=== PATIENT | male | born 1985 | race Caucasian/White ===

== ENCOUNTER 2018-06-07 13:47 | Inpatient (IN) | payer MEDICAID, OTHER ==
[~2018-06-07] VITALS: Ht 175.3 cm; Wt 148.0 kg
[~2018-06-07 13:47] MED LIST: CLON.5 PO; DOCU250C91 PO; FLUD25I IM; HYDR25TA PO; METO50 PO; OMEP20 PO; QUET200T PO
[2018-06-07 15:22] LABS: BASOPHILS % (AUTO) 0.9 % (0.0-2.0); EOSINOPHILS % (AUTO) 0.1 % (1.0-6.0); HEMATOCRIT 41.8 % (41-53); LYMPHOCYTES # (AUTO) 2.6 K/uL (1.0-4.8); MEAN CORPUSCULAR HEMOGLOBIN 29.9 pg (26.0-34.0); MEAN CORPUSCULAR HGB CONC 33.5 G/dL (31.0-37.0); MEAN CORPUSCULAR VOLUME 89 fL (80-100); MONOCYTES # (AUTO) 0.8 K/uL (0.1-1.0); MONOCYTES % (AUTO) 7.2 % (2.0-9.0); NEUTROPHILS # (AUTO) 8.2 K/uL (1.8-7.7); NEUTROPHILS % (AUTO) 69.8 % (40.0-70.0); PLATELET COUNT (AUTO) 283 K/uL (150-450); RED BLOOD CELL COUNT(AUTO) 4.69 MIL/uL (4.50-5.90); RED CELL DISTRIBUTION WIDTH 13.4 % (11.5-14.5)
[2018-06-07 15:33] LABS: ANION GAP 10 mmol/L (8-16); CALCIUM, TOTAL 9.2 mg/dL (8.8-10.5); CARBON DIOXIDE 27 mmol/L (22-29); CHLORIDE 99 mmol/L (98-107); CREATININE 0.88 mg/dL (0.60-1.30); GLOMERULAR FILTR. RATE CALC > 60 mL/min (>60); GLUCOSE,RANDOM 177 mg/dL (70-110); POTASSIUM 3.4 mmol/L (3.5-5.1); SODIUM SERUM 136 mmol/L (136-145); UREA NITROGEN, BLOOD 9 mg/dL (7-18)
[2018-06-07 15:39] LABS: ALANINE AMINOTRANSFERASE 135 U/L (12-78); ALBUMIN 3.8 g/dL (3.4-5.0); ALKALINE PHOSPHATASE 75 U/L (46-116); ASPARTATE AMINOTRANSFERASE 105 U/L (15-37); BILIRUBIN,TOTAL 1.8 mg/dL (0.1-1.0); TOTAL PROTEIN, SERUM 8.8 g/dL (6.4-8.2)
[2018-06-07] MEDS ORDERED: PROPRANOLOL HCL 40 MG TABLET PO ONE (16:30)
[2018-06-07] MEDS ORDERED: POTASSIUM CHLORIDE 20 MEQ ER TABLET PO ONE (16:30)
[2018-06-07] MEDS ORDERED: ZOLPIDEM TARTRATE 10 MG TABLET PO PRN (16:45)
[2018-06-07 18:24] LABS: AMPHET/METH SCREEN,URINE NEGATIVE (NEGATIVE); BARBITURATE SCREEN, URINE NEGATIVE (NEGATIVE); BENZODIAZEPINES SCREEN,URINE NEGATIVE (NEGATIVE); CANNABINOID SCREEN,URINE NEGATIVE (NEGATIVE); COCAINE SCREEN,URINE NEGATIVE (NEGATIVE); METHADONE SCREEN, URINE NEGATIVE (NEGATIVE); OPIATE SCREEN,URINE NEGATIVE (NEGATIVE)
[2018-06-07 18:26] LABS: APPEARANCE,URINE CLEAR (CLEAR); BILIRUBIN,URINE NEGATIVE (NEGATIVE); GLUCOSE, URINE (UA) NEGATIVE (NEGATIVE); KETONES,URINE TRACE mg/dL (NEGATIVE); LEUKOCYTE ESTERASE ,URINE NEGATIVE (NEGATIVE); NITRATE,URINE NEGATIVE (NEGATIVE); OCCULT BLOOD,URINE TRACE (NEGATIVE); PROTEIN,URINE SEE CONFIRM (NEGATIVE)
[2018-06-07 18:29] LABS: PHENCYCLIDINE SCREEN,URINE NEGATIVE (NEGATIVE)
[2018-06-07 18:48] LABS: SULFOSALICYLIC ACID,URINE 3+ (Negative)
[2018-06-07 18:49] LABS: BACTERIA,URINE None Seen /HPF (None Seen); RBC,URINE 0-2 /HPF (0-2); SQUAMOUS EPITHELIAL CELL,UR Rare /LPF (None Seen); WBC,URINE 0-2 /HPF (0-5)
[2018-06-07] MEDS ORDERED: DiphenhydrAMINE HCL 50 MG/ML VIAL IM ONE (21:15)
[2018-06-07] MEDS ORDERED: LORazepam 2 MG/ML VIAL IM ONE (21:15)
[2018-06-07] MEDS ORDERED: HALOPERIDOL LACTATE 5 MG/ML VIAL IM ONE (21:15)
[2018-06-07] MEDS ORDERED: CloNIDine HCL 0.1 MG TABLET PO PRN (22:30)
[2018-06-08 00:46] VITALS: BP 137/78
[2018-06-08 08:41] LABS: ALANINE AMINOTRANSFERASE 136 U/L (12-78); ALBUMIN 3.7 g/dL (3.4-5.0); ALKALINE PHOSPHATASE 76 U/L (46-116); ANION GAP 11 mmol/L (8-16); ASPARTATE AMINOTRANSFERASE 99 U/L (15-37); BILIRUBIN,TOTAL 1.7 mg/dL (0.1-1.0); CARBON DIOXIDE 28 mmol/L (22-29); CHLORIDE 101 mmol/L (98-107); CHOL/HDL RATIO 4.1 (4.2-7.3); CHOLESTEROL 186 mg/dL (131-200); CREATININE 0.92 mg/dL (0.60-1.30); FREE T4 (FREE THYROXINE) 1.15 ng/dL (0.76-1.46); GLOMERULAR FILTR. RATE CALC > 60 mL/min (>60); GLUCOSE,RANDOM 126 mg/dL (70-110); HDL CHOLESTEROL 45 mg/dL (40-60); LDL CHOL (CALC.) 122 mg/dL (0-130); POTASSIUM 3.9 mmol/L (3.5-5.1); SODIUM SERUM 140 mmol/L (136-145); THYROID STIMULATING HORMONE 2.38 uIU/mL (0.36-3.74); TOTAL PROTEIN, SERUM 8.1 g/dL (6.4-8.2); TRIGLYCERIDES 94 mg/dL (15-150); UREA NITROGEN, BLOOD 17 mg/dL (7-18)
[2018-06-08] MEDS: HYDROCHLOROTHIAZIDE 25 MG TABLET PO SCH (08:46)
[2018-06-08] MEDS: METOPROLOL TARTRATE 50 MG TABLET PO SCH (08:46)
[2018-06-08] MEDS: OMEPRAZOLE 20 MG CAPSULE PO SCH (08:47)
[2018-06-08 09:36] VITALS: BP 137/77
[2018-06-08] MEDS ORDERED: HALOPERIDOL LACTATE 5 MG/ML VIAL ONE (14:31)
[2018-06-08] MEDS ORDERED: LORazepam 2 MG/ML VIAL ONE (14:31)
[2018-06-08] MEDS ORDERED: DiphenhydrAMINE HCL 50 MG/ML VIAL ONE (14:31)
[2018-06-08] MEDS ORDERED: HALOPERIDOL LACTATE 5 MG/ML VIAL IM ONE (15:55)
[2018-06-08] MEDS ORDERED: DiphenhydrAMINE HCL 50 MG/ML VIAL IM ONE (15:55)
[2018-06-08] MEDS ORDERED: LORazepam 2 MG/ML VIAL IM ONE (15:55)
[2018-06-08 16:09] VITALS: BP 138/83
[2018-06-08] MEDS: ZIPRASIDONE HCL 20 MG CAPSULE PO SCH (17:11)
[2018-06-08] MEDS: DOCUSATE SODIUM 250 MG CAPSULE PO SCH (20:41)
[2018-06-09 04:05] VITALS: BP 152/99
[2018-06-09] MEDS: ZIPRASIDONE HCL 20 MG CAPSULE PO SCH ×2 (06:21→17:27)
[2018-06-09] MEDS: METOPROLOL TARTRATE 50 MG TABLET PO SCH (08:48)
[2018-06-09] MEDS: HYDROCHLOROTHIAZIDE 25 MG TABLET PO SCH (08:49)
[2018-06-09] MEDS: OMEPRAZOLE 20 MG CAPSULE PO SCH (08:49)
[2018-06-09 09:15] VITALS: BP 140/95
[2018-06-09 16:38] VITALS: BP 144/98
[2018-06-09] MEDS: DOCUSATE SODIUM 250 MG CAPSULE PO SCH (20:27)
[2018-06-10 06:40] LABS: GLUCOMETER DEV NAME(LOC) 3E.C; GLUCOSE,POINT OF CARE 181 MG/DL (70-110)
[2018-06-10] MEDS: ZIPRASIDONE HCL 20 MG CAPSULE PO SCH ×2 (07:04→16:38)
[2018-06-10 08:05] VITALS: BP 142/103
[2018-06-10] MEDS: OMEPRAZOLE 20 MG CAPSULE PO SCH (09:09)
[2018-06-10] MEDS: METOPROLOL TARTRATE 50 MG TABLET PO SCH (09:09)
[2018-06-10] MEDS: HYDROCHLOROTHIAZIDE 25 MG TABLET PO SCH (09:09)
[2018-06-10] MEDS: DOCUSATE SODIUM 250 MG CAPSULE PO SCH (20:28)
[2018-06-10 21:01] VITALS: BP 135/98
[2018-06-11] MEDS: HALOPERIDOL 5 MG TABLET PO PRN ×2 (04:14→12:28)
[2018-06-11] MEDS: LORazepam 2 MG TABLET PO PRN ×2 (04:15→12:28)
[2018-06-11 04:22] VITALS: BP 159/88
[2018-06-11 05:59] LABS: BASOPHILS % (AUTO) 0.7 % (0.0-2.0); EOSINOPHILS % (AUTO) 0.9 % (1.0-6.0); HEMATOCRIT 40.3 % (41-53); HEMOGLOBIN 13.8 g/dL (13.5-17.5); LYMPHOCYTES # (AUTO) 2.7 K/uL (1.0-4.8); LYMPHOCYTES % (AUTO) 27.8 % (22.0-44.0); MEAN CORPUSCULAR HEMOGLOBIN 30.4 pg (26.0-34.0); MEAN CORPUSCULAR HGB CONC 34.3 G/dL (31.0-37.0); MEAN CORPUSCULAR VOLUME 89 fL (80-100); MONOCYTES # (AUTO) 0.8 K/uL (0.1-1.0); NEUTROPHILS # (AUTO) 6.1 K/uL (1.8-7.7); NEUTROPHILS % (AUTO) 62.6 % (40.0-70.0); PLATELET COUNT (AUTO) 241 K/uL (150-450); RED BLOOD CELL COUNT(AUTO) 4.53 MIL/uL (4.50-5.90); RED CELL DISTRIBUTION WIDTH 13.1 % (11.5-14.5)
[2018-06-11 06:16] LABS: ALANINE AMINOTRANSFERASE 125 U/L (12-78); ALBUMIN 3.5 g/dL (3.4-5.0); ALKALINE PHOSPHATASE 79 U/L (46-116); ANION GAP 10 mmol/L (8-16); ASPARTATE AMINOTRANSFERASE 72 U/L (15-37); BILIRUBIN,TOTAL 0.7 mg/dL (0.1-1.0); CALCIUM, TOTAL 9.4 mg/dL (8.8-10.5); CARBON DIOXIDE 29 mmol/L (22-29); CHLORIDE 100 mmol/L (98-107); CREATININE 0.79 mg/dL (0.60-1.30); GLOMERULAR FILTR. RATE CALC > 60 mL/min (>60); GLUCOSE,RANDOM 151 mg/dL (70-110); POTASSIUM 3.8 mmol/L (3.5-5.1); SODIUM SERUM 139 mmol/L (136-145); TOTAL PROTEIN, SERUM 8.2 g/dL (6.4-8.2); UREA NITROGEN, BLOOD 14 mg/dL (7-18)
[2018-06-11] MEDS: ZIPRASIDONE HCL 20 MG CAPSULE PO SCH (06:54)
[2018-06-11] MEDS: METOPROLOL TARTRATE 50 MG TABLET PO SCH (08:54)
[2018-06-11] MEDS: OMEPRAZOLE 20 MG CAPSULE PO SCH (08:55)
[2018-06-11] MEDS: HYDROCHLOROTHIAZIDE 25 MG TABLET PO SCH (08:55)
[2018-06-11 09:04] VITALS: BP 146/86
[2018-06-11] MEDS ORDERED: ZIPR20CA2 PO (13:42)
== END 2018-06-11 15:10 | disposition home or self-care (01) | DRG 750 ==
LOC: EMS 13:49 → B3A 18:54 → 3EC 06-09 14:54
PROVIDERS: ADMIT Psychiatry & Neurology Psychiatry; ATTEND Psychiatry & Neurology Psychiatry
DX: F25.0 Schizoaffective disorder, bipolar type (principal); R45.851 Suicidal ideations; Z68.42 Body mass index [BMI] 45.0-49.9, adult; F41.9 Anxiety disorder, unspecified; R45.87 Impulsiveness; K21.9 Gastro-esophageal reflux disease without esophagitis; I10 Essential (primary) hypertension; E87.6 Hypokalemia; E03.9 Hypothyroidism, unspecified; D72.829 Elevated white blood cell count, unspecified; K59.00 Constipation, unspecified; G47.33 Obstructive sleep apnea (adult) (pediatric); E66.9 Obesity, unspecified; Z91.14 Patient's other noncompliance with medication regimen; Z91.19 Patient's noncompliance with other medical treatment and regimen; Z82.49 Family history of ischemic heart disease and other diseases of the circulatory system
CPT/HCPCS: 80074; 84436; 84439; 84443; 90686; 94660; G0480; J1200; J1630; J2060

== ENCOUNTER 2018-07-31 22:12 | Emergency (ER) | payer MEDICAID ==
[~2018-07-31 22:12] MED LIST changes: -CLON.5 PO; -FLUD25I IM; -QUET200T PO; +ZIPR20CA2 PO
== END 2018-07-31 23:13 | disposition left against medical advice (07) ==
LOC: EMS 22:12
DX: Z00.00 Encounter for general adult medical examination without abnormal findings (principal); Z53.21 Procedure and treatment not carried out due to patient leaving prior to being seen by health care provider

== ENCOUNTER 2018-08-01 05:36 | Emergency (ER) | payer MEDICAID, OTHER ==
[~2018-08-01] VITALS: Ht 180.3 cm; Wt 145.4 kg
[2018-08-01 07:25] VITALS: BP 161/108
== END 2018-08-01 07:55 | disposition home or self-care (01) ==
LOC: EMS 05:36
DX: F31.9 Bipolar disorder, unspecified (principal); F41.9 Anxiety disorder, unspecified; I10 Essential (primary) hypertension; K21.9 Gastro-esophageal reflux disease without esophagitis; Z76.0 Encounter for issue of repeat prescription

== ENCOUNTER 2018-08-03 13:26 | Inpatient (IN) | payer MEDICAID, OTHER ==
[~2018-08-03] VITALS: Ht 172.7 cm; Wt 148.3 kg
[~2018-08-03 13:26] MED LIST changes: -DOCU250C91 PO; -HYDR25TA PO; -METO50 PO; -OMEP20 PO
[2018-08-03] MEDS ORDERED: GuaiFENesin/D-METHORPHAN [SUGAR-FREE] 200-20MG/10 ML SYRUP UDCUP PO PRN (15:00)
[2018-08-03] MEDS ORDERED: TUBERCULIN, PURIFIED PROTEIN DERIVATIVE 5 TU/0.1 ML SYRINGE ID ONE (15:00)
[2018-08-03] MEDS ORDERED: HydrOXYzine PAMOATE 50 MG CAPSULE PO PRN (15:00)
[2018-08-03] MEDS ORDERED: MAG HYDROX/AL HYDROX/SIMETH ES 30 ML SUSPENSION UDCUP PO PRN (15:00)
[2018-08-03] MEDS ORDERED: PROMETHAZINE HCL 25 MG TABLET PO PRN (15:00)
[2018-08-03 15:41] LABS: AMPHET/METH SCREEN,URINE NEGATIVE (NEGATIVE); BARBITURATE SCREEN, URINE NEGATIVE (NEGATIVE); BENZODIAZEPINES SCREEN,URINE NEGATIVE (NEGATIVE); CANNABINOID SCREEN,URINE NEGATIVE (NEGATIVE); COCAINE SCREEN,URINE NEGATIVE (NEGATIVE); METHADONE SCREEN, URINE NEGATIVE (NEGATIVE); OPIATE SCREEN,URINE NEGATIVE (NEGATIVE)
[2018-08-03 15:42] LABS: LIPASE 106 U/L (73-393)
[2018-08-03 15:43] LABS: PHENCYCLIDINE SCREEN,URINE NEGATIVE (NEGATIVE)
[2018-08-03 16:26] LABS: BASOPHILS % (AUTO) 0.5 % (0.0-2.0); EOSINOPHILS % (AUTO) 0.3 % (1.0-6.0); HEMATOCRIT 39.8 % (41-53); HEMOGLOBIN 13.8 g/dL (13.5-17.5); LYMPHOCYTES # (AUTO) 2.8 K/uL (1.0-4.8); MEAN CORPUSCULAR HEMOGLOBIN 30.1 pg (26.0-34.0); MEAN CORPUSCULAR HGB CONC 34.6 G/dL (31.0-37.0); MEAN CORPUSCULAR VOLUME 87 fL (80-100); MONOCYTES # (AUTO) 0.8 K/uL (0.1-1.0); MONOCYTES % (AUTO) 5.9 % (2.0-9.0); NEUTROPHILS # (AUTO) 10.4 K/uL (1.8-7.7); NEUTROPHILS % (AUTO) 73.3 % (40.0-70.0); PLATELET COUNT (AUTO) 291 K/uL (150-450); RED BLOOD CELL COUNT(AUTO) 4.58 MIL/uL (4.50-5.90); RED CELL DISTRIBUTION WIDTH 12.9 % (11.5-14.5)
[2018-08-03 16:29] LABS: ANION GAP 11 mmol/L (8-16); CALCIUM, TOTAL 9.4 mg/dL (8.8-10.5); CARBON DIOXIDE 24 mmol/L (22-29); CHLORIDE 96 mmol/L (98-107); CREATININE 1.04 mg/dL (0.60-1.30); GLOMERULAR FILTR. RATE CALC > 60 mL/min (>60); GLUCOSE,RANDOM 233 mg/dL (70-110); POTASSIUM 3.6 mmol/L (3.5-5.1); SODIUM SERUM 131 mmol/L (136-145); UREA NITROGEN, BLOOD 13 mg/dL (7-18)
[2018-08-03 16:35] LABS: ALANINE AMINOTRANSFERASE 50 U/L (12-78); ALBUMIN 3.4 g/dL (3.4-5.0); ALKALINE PHOSPHATASE 85 U/L (46-116); ASPARTATE AMINOTRANSFERASE 52 U/L (15-37); TOTAL PROTEIN, SERUM 8.6 g/dL (6.4-8.2)
[2018-08-03] MEDS: METOPROLOL TARTRATE 50 MG TABLET PO ONE ×2 (16:57→17:02)
[2018-08-03] MEDS: THIAMINE HCL 100 MG TABLET PO SCH (21:00)
[2018-08-03] MEDS: QUEtiapine FUMARATE 200 MG TABLET PO SCH (21:00)
[2018-08-03] MEDS: LORazepam 2 MG TABLET PO PRN (21:39)
[2018-08-03] MEDS ORDERED: LORazepam 2 MG/ML VIAL ONE (22:31)
[2018-08-03] MEDS ORDERED: DiphenhydrAMINE HCL 50 MG/ML VIAL ONE (22:31)
[2018-08-03] MEDS ORDERED: DiphenhydrAMINE HCL 50 MG/ML VIAL IM ONE (22:45)
[2018-08-03] MEDS ORDERED: LORazepam 2 MG/ML VIAL IM ONE (22:45)
[2018-08-04] MEDS ORDERED: PNEUMOCOCCAL VACCINE POLYVALENT 0.5 ML VIAL [PPSV23] IM ONE (01:00)
[2018-08-04] MEDS ORDERED: LORazepam 2 MG/ML VIAL IM ONE ×2 (08:30→21:15)
[2018-08-04] MEDS ORDERED: DiphenhydrAMINE HCL 50 MG/ML VIAL IM ONE ×2 (08:30→21:15)
[2018-08-04] MEDS: FOLIC ACID 1 MG TABLET PO SCH (09:00)
[2018-08-04] MEDS: MULTIVITAMINS WITH MINERALS, THERAPEUTIC TABLET PO SCH (09:00)
[2018-08-04] MEDS: THIAMINE HCL 100 MG TABLET PO SCH ×2 (09:00→16:17)
[2018-08-04] MEDS: METOPROLOL TARTRATE 50 MG TABLET PO SCH (16:17)
[2018-08-04] MEDS: QUEtiapine FUMARATE 200 MG TABLET PO SCH (20:31)
[2018-08-04] MEDS ORDERED: LORazepam 2 MG/ML VIAL ONE (21:10)
[2018-08-04] MEDS ORDERED: DiphenhydrAMINE HCL 50 MG/ML VIAL ONE (21:11)
[2018-08-05] MEDS: DIVALPROEX SODIUM 500 MG ER TABLET PO SCH (08:29)
[2018-08-05] MEDS: MULTIVITAMINS WITH MINERALS, THERAPEUTIC TABLET PO SCH (08:30)
[2018-08-05] MEDS: OMEPRAZOLE 20 MG CAPSULE PO SCH (08:30)
[2018-08-05] MEDS: THIAMINE HCL 100 MG TABLET PO SCH ×2 (08:30→16:35)
[2018-08-05] MEDS: METOPROLOL TARTRATE 50 MG TABLET PO SCH ×2 (08:30→16:35)
[2018-08-05] MEDS: FOLIC ACID 1 MG TABLET PO SCH (08:30)
[2018-08-05] MEDS: QUEtiapine FUMARATE 100 MG TABLET PO PRN (08:33)
[2018-08-05] MEDS: LORazepam 2 MG TABLET PO PRN (08:33)
[2018-08-05] MEDS: ARIPiprazole 5 MG TABLET PO SCH ×2 (12:00→16:35)
[2018-08-05 16:38] VITALS: BP 116/69
[2018-08-05 16:39] VITALS: BP 116/69
[2018-08-05] MEDS: QUEtiapine FUMARATE 200 MG TABLET PO SCH (20:12)
[2018-08-06 05:16] VITALS: BP 152/92
[2018-08-06 08:46] VITALS: BP 137/88
[2018-08-06] MEDS: OMEPRAZOLE 20 MG CAPSULE PO SCH (09:00)
[2018-08-06] MEDS: FOLIC ACID 1 MG TABLET PO SCH (09:00)
[2018-08-06] MEDS: DIVALPROEX SODIUM 500 MG ER TABLET PO SCH (09:00)
[2018-08-06] MEDS: ARIPiprazole 5 MG TABLET PO SCH ×2 (09:00→17:17)
[2018-08-06] MEDS: MULTIVITAMINS WITH MINERALS, THERAPEUTIC TABLET PO SCH (09:00)
[2018-08-06] MEDS: METOPROLOL TARTRATE 50 MG TABLET PO SCH ×2 (09:00→17:18)
[2018-08-06] MEDS: THIAMINE HCL 100 MG TABLET PO SCH ×2 (09:00→17:18)
[2018-08-06] MEDS: ACETAMINOPHEN 325 MG TABLET PO PRN ×2 (12:03→19:29)
[2018-08-06 16:54] VITALS: BP 135/86
[2018-08-06 19:26] VITALS: BP 130/79
[2018-08-06] MEDS: QUEtiapine FUMARATE 300 MG TABLET PO SCH (20:38)
[2018-08-06] MEDS: LORazepam 2 MG TABLET PO PRN (22:30)
[2018-08-06] MEDS: ZOLPIDEM TARTRATE 10 MG TABLET PO PRN (23:44)
[2018-08-06] MEDS: QUEtiapine FUMARATE 100 MG TABLET PO PRN (23:44)
[2018-08-07 02:15] VITALS: BP 130/79
[2018-08-07 06:35] LABS: BASOPHILS % (AUTO) 0.7 % (0.0-2.0); EOSINOPHILS % (AUTO) 0.7 % (1.0-6.0); HEMATOCRIT 36.4 % (41-53); HEMOGLOBIN 12.3 g/dL (13.5-17.5); LYMPHOCYTES # (AUTO) 2.8 K/uL (1.0-4.8); LYMPHOCYTES % (AUTO) 26.3 % (22.0-44.0); MEAN CORPUSCULAR HEMOGLOBIN 29.7 pg (26.0-34.0); MEAN CORPUSCULAR HGB CONC 33.7 G/dL (31.0-37.0); MEAN CORPUSCULAR VOLUME 88 fL (80-100); MONOCYTES # (AUTO) 0.9 K/uL (0.1-1.0); MONOCYTES % (AUTO) 8.7 % (2.0-9.0); NEUTROPHILS # (AUTO) 6.8 K/uL (1.8-7.7); NEUTROPHILS % (AUTO) 63.6 % (40.0-70.0); PLATELET COUNT (AUTO) 248 K/uL (150-450); RED BLOOD CELL COUNT(AUTO) 4.12 MIL/uL (4.50-5.90); RED CELL DISTRIBUTION WIDTH 12.9 % (11.5-14.5)
[2018-08-07 06:45] VITALS: BP 134/84
[2018-08-07] MEDS: ACETAMINOPHEN 325 MG TABLET PO PRN (06:45)
[2018-08-07 08:03] VITALS: BP 159/90
[2018-08-07] MEDS: THIAMINE HCL 100 MG TABLET PO SCH ×3 (09:00→16:13)
[2018-08-07] MEDS: OMEPRAZOLE 20 MG CAPSULE PO SCH ×2 (09:00→09:58)
[2018-08-07] MEDS: FOLIC ACID 1 MG TABLET PO SCH ×2 (09:00→09:58)
[2018-08-07] MEDS: ARIPiprazole 15 MG TABLET PO SCH ×2 (09:00→09:59)
[2018-08-07] MEDS: MULTIVITAMINS WITH MINERALS, THERAPEUTIC TABLET PO SCH ×2 (09:00→09:58)
[2018-08-07] MEDS: DIVALPROEX SODIUM 500 MG ER TABLET PO SCH ×2 (09:00→09:58)
[2018-08-07] MEDS: METOPROLOL TARTRATE 50 MG TABLET PO SCH ×3 (09:00→16:13)
[2018-08-07] MEDS: LORazepam 2 MG TABLET PO PRN (09:58)
[2018-08-07 16:00] VITALS: BP 150/97
[2018-08-07] MEDS: QUEtiapine FUMARATE 300 MG TABLET PO SCH (20:22)
[2018-08-08 00:38] VITALS: BP 151/92
[2018-08-08] MEDS: ACETAMINOPHEN 325 MG TABLET PO PRN (00:38)
[2018-08-08] MEDS: LORazepam 2 MG TABLET PO PRN (00:57)
[2018-08-08] MEDS: ZOLPIDEM TARTRATE 10 MG TABLET PO PRN (00:57)
[2018-08-08 08:00] VITALS: BP 159/93
[2018-08-08] MEDS: ARIPiprazole 15 MG TABLET PO SCH ×2 (08:16→16:22)
[2018-08-08] MEDS: METOPROLOL TARTRATE 50 MG TABLET PO SCH ×2 (08:16→16:22)
[2018-08-08] MEDS: THIAMINE HCL 100 MG TABLET PO SCH ×2 (08:18→16:22)
[2018-08-08] MEDS: OMEPRAZOLE 20 MG CAPSULE PO SCH (08:18)
[2018-08-08] MEDS: MULTIVITAMINS WITH MINERALS, THERAPEUTIC TABLET PO SCH (08:18)
[2018-08-08] MEDS: FOLIC ACID 1 MG TABLET PO SCH (08:18)
[2018-08-08] MEDS ORDERED: ARIPiprazole LAUROXIL ER SUSPENSION 662 MG/2.4 ML SYRINGE IM SCH (09:00)
[2018-08-08] MEDS ORDERED: ARIP662S IM (14:44)
[2018-08-08] MEDS ORDERED: ARIP15TA2 PO (14:48)
[2018-08-08] MEDS ORDERED: METO50 PO (16:02)
[2018-08-08] MEDS ORDERED: OMEP10SU2 PO (16:04)
[2018-08-08] MEDS ORDERED: OMEP20 PO (16:06)
[2018-08-09] MEDS ORDERED: MULTIVITAMINS WITH IRON TABLET PO SCH (08:00)
== END 2018-08-08 18:45 | disposition home or self-care (01) | DRG 750 ==
LOC: EMS 13:27 → 3EC 20:30
PROVIDERS: ADMIT Psychiatry & Neurology Psychiatry; ATTEND Psychiatry & Neurology Psychiatry
DX: F25.0 Schizoaffective disorder, bipolar type (principal); E66.01 Morbid (severe) obesity due to excess calories; D72.829 Elevated white blood cell count, unspecified; Z28.21 Immunization not carried out because of patient refusal; E03.9 Hypothyroidism, unspecified; E78.5 Hyperlipidemia, unspecified; E87.1 Hypo-osmolality and hyponatremia; G47.33 Obstructive sleep apnea (adult) (pediatric); I10 Essential (primary) hypertension; K21.9 Gastro-esophageal reflux disease without esophagitis; Z59.0 Homelessness; Z91.19 Patient's noncompliance with other medical treatment and regimen; R73.9 Hyperglycemia, unspecified; F41.9 Anxiety disorder, unspecified; Z68.42 Body mass index [BMI] 45.0-49.9, adult
CPT/HCPCS: 96372; G0480; J1200; J2060; J3230

== ENCOUNTER 2021-04-16 22:24 | Inpatient (IN) | payer MEDICAID, OTHER ==
[~2021-04-16] VITALS: Ht 180.3 cm; Wt 140.7 kg
[~2021-04-16 22:24] MED LIST changes: +ARIP15TA27 PO; +ARIP662S IM; +METO50 PO; +OMEP20 PO; -ZIPR20CA2 PO
[2021-04-16 23:04] LABS: BASOPHILS % (AUTO) 0.8 % (0.0-2.0); EOSINOPHILS % (AUTO) 0.2 % (1.0-6.0); HEMATOCRIT 40.4 % (41-53); HEMOGLOBIN 13.7 g/dL (13.5-17.5); LYMPHOCYTES # (AUTO) 3.5 K/uL (1.0-4.8); MEAN CORPUSCULAR HEMOGLOBIN 29.2 pg (26.0-34.0); MEAN CORPUSCULAR VOLUME 86 fL (80-100); MONOCYTES # (AUTO) 0.8 K/uL (0.1-1.0); MONOCYTES % (AUTO) 6.1 % (2.0-9.0); NEUTROPHILS % (AUTO) 66.9 % (40.0-70.0); PLATELET COUNT (AUTO) 265 K/uL (150-450); RED BLOOD CELL COUNT(AUTO) 4.71 MIL/uL (4.50-5.90); RED CELL DISTRIBUTION WIDTH 13.3 % (11.5-14.5)
[2021-04-16 23:14] LABS: ANION GAP 4 mmol/L (8-16); CALCIUM, TOTAL 9.2 mg/dL (8.8-10.5); CARBON DIOXIDE 31 mmol/L (22-29); CHLORIDE 102 mmol/L (98-107); CREATININE 1.18 mg/dL (0.60-1.30); GLOMERULAR FILTR. RATE CALC > 60 mL/min (>60); GLUCOSE,RANDOM 317 mg/dL (70-110); POTASSIUM 3.8 mmol/L (3.5-5.1); SODIUM SERUM 137 mmol/L (136-145); UREA NITROGEN, BLOOD 14 mg/dL (7-18)
[2021-04-16 23:20] LABS: ALANINE AMINOTRANSFERASE 63 U/L (12-78); ALBUMIN 3.6 g/dL (3.4-5.0); ALKALINE PHOSPHATASE 90 U/L (46-116); ASPARTATE AMINOTRANSFERASE 47 U/L (15-37); BILIRUBIN,TOTAL 1.3 mg/dL (0.1-1.0); TOTAL PROTEIN, SERUM 8.5 g/dL (6.4-8.2)
[2021-04-17] MEDS ORDERED: HALOPERIDOL LACTATE 5 MG/ML VIAL IM ONE ×2 (02:30→05:45)
[2021-04-17] MEDS ORDERED: LORazepam 2 MG/ML VIAL IM ONE ×2 (02:30→05:45)
[2021-04-17] MEDS ORDERED: DiphenhydrAMINE HCL 50 MG/ML VIAL IM ONE (02:30)
[2021-04-17 02:50] LABS: COVID AG,FIA SOURCE NASOPHARYNGEAL
[2021-04-17] MEDS ORDERED: ChlorproMAZINE HCL 100 MG TABLET PO PRN (03:15)
[2021-04-17] MEDS ORDERED: DEXTROSE 50%-WATER 25 GM/50 ML SYRINGE IVP PRN (09:30)
[2021-04-17] MEDS: INSULIN LISPRO 100 UNITS/ML SQ PRN ×2 (14:20→19:00)
[2021-04-17] MEDS: ZOLPIDEM TARTRATE 10 MG TABLET PO PRN (19:30)
[2021-04-17] MEDS: LORazepam 1 MG TABLET PO PRN (19:30)
[2021-04-18] MEDS: INSULIN LISPRO 100 UNITS/ML SQ PRN ×6 (01:33→21:55)
[2021-04-18 01:41] LABS: GLUCOSE,POINT OF CARE 249 MG/DL (70-110)
[2021-04-18] MEDS: LORazepam 1 MG TABLET PO PRN ×2 (03:06→16:32)
[2021-04-18] MEDS ORDERED: LORazepam 2 MG TABLET PO ONE (05:00)
[2021-04-18 05:24] LABS: CHOL/HDL RATIO 3.7 (4.2-7.3)
[2021-04-18 07:24] LABS: GLUCOSE,POINT OF CARE 232 MG/DL (70-110)
[2021-04-18 11:42] LABS: GLUCOSE,POINT OF CARE 268 MG/DL (70-110)
[2021-04-18] MEDS ORDERED: INFLUENZA VIRUS VACCINE QVS 2021-22 (6MO+)/PF 60 MCG/0.5 ML SYRINGE IM. ONE (16:45)
[2021-04-18 16:58] VITALS: BP 148/90
[2021-04-18 17:06] LABS: GLUCOMETER DEV NAME(LOC) 3E.C; GLUCOSE,POINT OF CARE 219 MG/DL (70-110)
[2021-04-18] MEDS: METOPROLOL TARTRATE 50 MG TABLET PO SCH (19:24)
[2021-04-18] MEDS: ZOLPIDEM TARTRATE 10 MG TABLET PO PRN (20:02)
[2021-04-18 21:19] LABS: GLUCOMETER DEV NAME(LOC) 3E.C; GLUCOSE,POINT OF CARE 218 MG/DL (70-110)
[2021-04-18 22:03] LABS: GLUCOMETER DEV NAME(LOC) 3E.C; GLUCOSE,POINT OF CARE 301 MG/DL (70-110)
[2021-04-19] MEDS: LORazepam 1 MG TABLET PO PRN ×3 (03:09→19:45)
[2021-04-19 06:29] LABS: GLUCOMETER DEV NAME(LOC) 3E.C; GLUCOSE,POINT OF CARE 238 MG/DL (70-110)
[2021-04-19] MEDS: INSULIN LISPRO 100 UNITS/ML SQ PRN ×4 (06:49→21:14)
[2021-04-19] MEDS: OMEPRAZOLE 20 MG CAPSULE PO SCH (08:09)
[2021-04-19] MEDS: METOPROLOL TARTRATE 50 MG TABLET PO SCH ×2 (08:09→17:43)
[2021-04-19] MEDS: ARIPiprazole 15 MG TABLET PO SCH (11:49)
[2021-04-19 11:57] LABS: GLUCOMETER DEV NAME(LOC) 3E.C; GLUCOSE,POINT OF CARE 287 MG/DL (70-110)
[2021-04-19 15:58] LABS: GLUCOMETER DEV NAME(LOC) 3E.C; GLUCOSE,POINT OF CARE 187 MG/DL (70-110)
[2021-04-19 16:10] VITALS: BP 155/82
[2021-04-19] MEDS ORDERED: OMEPRAZOLE 20 MG CAPSULE PO PRN (16:15)
[2021-04-19] MEDS ORDERED: ALBUTEROL SULFATE HFA 90 MCG/PUFF 8 GM INHALER IH PRN (16:15)
[2021-04-19] MEDS ORDERED: IBUPROFEN 600 MG TABLET PO PRN (16:15)
[2021-04-19] MEDS ORDERED: PETROLATUM,WHITE 28 GM JELLY TP PRN (16:15)
[2021-04-19] MEDS ORDERED: CloNIDine HCL 0.1 MG TABLET PO PRN (16:15)
[2021-04-19] MEDS ORDERED: MAG HYDROX/AL HYDROX/SIMETH ES 30 ML SUSPENSION UDCUP PO PRN (16:15)
[2021-04-19] MEDS ORDERED: LOPERAMIDE HCL 2 MG CAPSULE PO PRN (16:15)
[2021-04-19] MEDS ORDERED: BACITRACIN 28 GM OINTMENT TP PRN (16:15)
[2021-04-19] MEDS ORDERED: DOCUSATE SODIUM 100 MG CAPSULE PO PRN (16:15)
[2021-04-19] MEDS ORDERED: BENZOCAINE/MENTHOL LOZENGE PO PRN (16:15)
[2021-04-19] MEDS ORDERED: ONDANSETRON HCL 4 MG TABLET PO PRN (16:15)
[2021-04-19] MEDS ORDERED: MAGNESIUM HYDROXIDE SUSPENSION 30 ML UDCUP PO PRN (16:15)
[2021-04-19] MEDS ORDERED: ACETAMINOPHEN 325 MG TABLET PO PRN (16:15)
[2021-04-19] MEDS: QUEtiapine FUMARATE 300 MG TABLET PO SCH (20:38)
[2021-04-19 20:39] LABS: GLUCOMETER DEV NAME(LOC) 3E.C; GLUCOSE,POINT OF CARE 261 MG/DL (70-110)
[2021-04-20] MEDS: INSULIN LISPRO 100 UNITS/ML SQ PRN ×3 (06:48→21:32)
[2021-04-20 06:50] LABS: GLUCOMETER DEV NAME(LOC) 3E.C; GLUCOSE,POINT OF CARE 216 MG/DL (70-110)
[2021-04-20 08:24] VITALS: BP 153/120
[2021-04-20] MEDS: ARIPiprazole 15 MG TABLET PO SCH (10:01)
[2021-04-20] MEDS: LORazepam 1 MG TABLET PO PRN ×2 (10:01→21:25)
[2021-04-20] MEDS: METOPROLOL TARTRATE 50 MG TABLET PO SCH ×2 (10:01→16:28)
[2021-04-20] MEDS: OMEPRAZOLE 20 MG CAPSULE PO SCH (10:02)
[2021-04-20 11:54] LABS: GLUCOMETER DEV NAME(LOC) 3E.C; GLUCOSE,POINT OF CARE 320 MG/DL (70-110)
[2021-04-20 16:00] VITALS: BP 147/93
[2021-04-20 19:40] LABS: GLUCOMETER DEV NAME(LOC) 3E.C; GLUCOSE,POINT OF CARE 264 MG/DL (70-110)
[2021-04-20] MEDS: QUEtiapine FUMARATE 300 MG TABLET PO SCH (20:03)
[2021-04-21] MEDS ORDERED: DiphenhydrAMINE HCL 50 MG/ML VIAL IM ONE (01:30)
[2021-04-21] MEDS ORDERED: LORazepam 2 MG/ML VIAL IM ONE (01:30)
[2021-04-21] MEDS ORDERED: HALOPERIDOL LACTATE 5 MG/ML VIAL IM ONE (01:30)
[2021-04-21 06:25] LABS: GLUCOMETER DEV NAME(LOC) 3E.C; GLUCOSE,POINT OF CARE 261 MG/DL (70-110)
[2021-04-21] MEDS: INSULIN LISPRO 100 UNITS/ML SQ PRN ×3 (06:44→21:28)
[2021-04-21] MEDS: ARIPiprazole 15 MG TABLET PO SCH (08:18)
[2021-04-21] MEDS: METOPROLOL TARTRATE 50 MG TABLET PO SCH ×2 (08:18→16:33)
[2021-04-21] MEDS: OMEPRAZOLE 20 MG CAPSULE PO SCH (08:18)
[2021-04-21] MEDS: LORazepam 1 MG TABLET PO PRN ×3 (08:20→20:16)
[2021-04-21 08:31] VITALS: BP 158/90
[2021-04-21 11:32] LABS: GLUCOMETER DEV NAME(LOC) 3E.C; GLUCOSE,POINT OF CARE 250 MG/DL (70-110)
[2021-04-21 16:12] LABS: GLUCOMETER DEV NAME(LOC) 3E.C; GLUCOSE,POINT OF CARE 239 MG/DL (70-110)
[2021-04-21] MEDS: MetFORMIN HCL 500 MG TABLET PO SCH (17:12)
[2021-04-21] MEDS: QUEtiapine FUMARATE 300 MG TABLET PO SCH (20:16)
[2021-04-21 21:31] LABS: GLUCOMETER DEV NAME(LOC) 3E.C; GLUCOSE,POINT OF CARE 274 MG/DL (70-110)
[2021-04-22 06:18] LABS: GLUCOMETER DEV NAME(LOC) 3E.C; GLUCOSE,POINT OF CARE 183 MG/DL (70-110)
[2021-04-22] MEDS: MetFORMIN HCL 500 MG TABLET PO SCH (06:38)
[2021-04-22] MEDS: METOPROLOL TARTRATE 50 MG TABLET PO SCH (08:45)
[2021-04-22] MEDS: OMEPRAZOLE 20 MG CAPSULE PO SCH (08:45)
[2021-04-22] MEDS: LORazepam 1 MG TABLET PO PRN (08:46)
[2021-04-22] MEDS ORDERED: ARIPiprazole 10 MG TABLET PO SCH (09:00)
[2021-04-22 09:42] VITALS: BP 140/84
[2021-04-22] MEDS ORDERED: ARIP10TA38 PO (10:34)
[2021-04-22] MEDS ORDERED: QUET300T2 PO (10:34)
[2021-04-22] MEDS ORDERED: METF-1211 PO (10:36)
[2021-04-22] MEDS: INSULIN LISPRO 100 UNITS/ML SQ PRN (11:58)
[2021-04-22 12:05] LABS: GLUCOMETER DEV NAME(LOC) 3E.C; GLUCOSE,POINT OF CARE 225 MG/DL (70-110)
== END 2021-04-22 12:30 | disposition home or self-care (01) | DRG 750 ==
LOC: EMS 22:26 → 3EC 04-18 14:52
PROVIDERS: ADMIT Psychiatry & Neurology Psychiatry; ATTEND Psychiatry & Neurology Psychiatry
DX: F25.0 Schizoaffective disorder, bipolar type (principal); E11.9 Type 2 diabetes mellitus without complications; F41.9 Anxiety disorder, unspecified; I10 Essential (primary) hypertension; Z20.822 Contact with and (suspected) exposure to COVID-19; Z91.19 Patient's noncompliance with other medical treatment and regimen
CPT/HCPCS: 80053; 80061; 82962; 83036; 85025; 94660; 99291; G0480; J1200; J1630; J1815; J2060

== ENCOUNTER 2021-04-28 19:39 | Emergency (ER) | payer MEDICAID, OTHER ==
[~2021-04-28] VITALS: Ht 180.3 cm; Wt 72.7 kg
[~2021-04-28 19:39] MED LIST changes: +ARIP10TA38 PO; -ARIP15TA27 PO; -ARIP662S IM; +METF-1211 PO; +QUET300T2 PO
[2021-04-28 20:30] VITALS: BP 154/106
== END 2021-04-28 20:40 | disposition left against medical advice (07) ==
LOC: EMS 19:42
DX: F41.9 Anxiety disorder, unspecified (principal); Z53.21 Procedure and treatment not carried out due to patient leaving prior to being seen by health care provider

== ENCOUNTER 2021-04-29 02:24 | Inpatient (IN) | payer MEDICAID, OTHER ==
[~2021-04-29] VITALS: Ht 177.8 cm; Wt 141.5 kg
[2021-04-29 04:28] LABS: BASOPHILS % (AUTO) 0.5 % (0.0-2.0); EOSINOPHILS % (AUTO) 1.2 % (1.0-6.0); HEMATOCRIT 37.5 % (41-53); HEMOGLOBIN 12.7 g/dL (13.5-17.5); LYMPHOCYTES # (AUTO) 3.9 K/uL (1.0-4.8); LYMPHOCYTES % (AUTO) 32.3 % (22.0-44.0); MEAN CORPUSCULAR HEMOGLOBIN 29.5 pg (26.0-34.0); MEAN CORPUSCULAR HGB CONC 33.9 G/dL (31.0-37.0); MEAN CORPUSCULAR VOLUME 87 fL (80-100); MONOCYTES # (AUTO) 0.7 K/uL (0.1-1.0); MONOCYTES % (AUTO) 6.1 % (2.0-9.0); NEUTROPHILS # (AUTO) 7.3 K/uL (1.8-7.7); NEUTROPHILS % (AUTO) 59.9 % (40.0-70.0); PLATELET COUNT (AUTO) 285 K/uL (150-450); RED BLOOD CELL COUNT(AUTO) 4.31 MIL/uL (4.50-5.90)
[2021-04-29 04:31] LABS: ANION GAP 5 mmol/L (8-16); CALCIUM, TOTAL 9.2 mg/dL (8.8-10.5); CARBON DIOXIDE 31 mmol/L (22-29); CHLORIDE 103 mmol/L (98-107); GLOMERULAR FILTR. RATE CALC > 60 mL/min (>60); GLUCOSE,RANDOM 267 mg/dL (70-110); SODIUM SERUM 139 mmol/L (136-145); UREA NITROGEN, BLOOD 14 mg/dL (7-18)
[2021-04-29 04:37] LABS: GLUCOMETER DEV NAME(LOC) ERT.5; GLUCOSE,POINT OF CARE 218 MG/DL (70-110)
[2021-04-29 04:38] LABS: AMPHET/METH SCREEN,URINE NEGATIVE (NEGATIVE); BARBITURATE SCREEN, URINE NEGATIVE (NEGATIVE); BENZODIAZEPINES SCREEN,URINE NEGATIVE (NEGATIVE); CANNABINOID SCREEN,URINE NEGATIVE (NEGATIVE); COCAINE SCREEN,URINE NEGATIVE (NEGATIVE); METHADONE SCREEN, URINE NEGATIVE (NEGATIVE); OPIATE SCREEN,URINE NEGATIVE (NEGATIVE)
[2021-04-29 04:38] LABS: ALANINE AMINOTRANSFERASE 86 U/L (12-78); ALBUMIN 3.2 g/dL (3.4-5.0); ALKALINE PHOSPHATASE 97 U/L (46-116); ASPARTATE AMINOTRANSFERASE 50 U/L (15-37); BILIRUBIN,TOTAL 0.5 mg/dL (0.1-1.0)
[2021-04-29 04:39] LABS: PHENCYCLIDINE SCREEN,URINE NEGATIVE (NEGATIVE)
[2021-04-29] MEDS ORDERED: ZOLPIDEM TARTRATE 10 MG TABLET PO PRN ×2 (04:45→09:15)
[2021-04-29 04:52] LABS: COVID AG,FIA SOURCE NASOPHARYNGEAL
[2021-04-29 05:06] LABS: APPEARANCE,URINE CLEAR (CLEAR); BILIRUBIN,URINE NEGATIVE (NEGATIVE); GLUCOSE, URINE (UA) >=1000 mg/dL (NEGATIVE); KETONES,URINE NEGATIVE (NEGATIVE); LEUKOCYTE ESTERASE ,URINE NEGATIVE (NEGATIVE); NITRATE,URINE NEGATIVE (NEGATIVE); OCCULT BLOOD,URINE NEGATIVE (NEGATIVE); PH,URINE 5.5 (5.0-8.0); PROTEIN,URINE SEE CONFIRM (NEGATIVE); UROBILINOGEN,URINE 0.2 mg/dL (<=1.0)
[2021-04-29 05:12] LABS: SULFOSALICYLIC ACID,URINE 2+ (Negative)
[2021-04-29 05:13] LABS: BACTERIA,URINE Rare /HPF (None Seen); RBC,URINE None Seen /HPF (0-2); WBC,URINE 0-2 /HPF (0-5)
[2021-04-29] MEDS: LORazepam 2 MG TABLET PO PRN ×3 (05:16→20:40)
[2021-04-29] MEDS: HALOPERIDOL 5 MG TABLET PO PRN ×3 (05:16→20:40)
[2021-04-29] MEDS ORDERED: OLANZapine 5 MG RAPDIS TABLET PO PRN (09:15)
[2021-04-29] MEDS ORDERED: ACETAMINOPHEN 325 MG TABLET PO PRN (09:15)
[2021-04-29] MEDS ORDERED: PALIPERIDONE PALMITATE 234 MG/1.5 ML SYRINGE IM ONE (09:15)
[2021-04-29] MEDS ORDERED: LOPERAMIDE HCL 2 MG CAPSULE PO PRN (09:15)
[2021-04-29] MEDS ORDERED: LORazepam 2 MG TABLET PO PRN (09:15)
[2021-04-29] MEDS ORDERED: PROMETHAZINE HCL 25 MG TABLET PO PRN (09:15)
[2021-04-29] MEDS ORDERED: MAG HYDROX/AL HYDROX/SIMETH ES 30 ML SUSPENSION UDCUP PO PRN (09:15)
[2021-04-29] MEDS ORDERED: TUBERCULIN, PURIFIED PROTEIN DERIVATIVE 5 TU/0.1 ML SYRINGE ID ONE (09:15)
[2021-04-29] MEDS ORDERED: MAGNESIUM HYDROXIDE SUSPENSION 30 ML UDCUP PO PRN (09:15)
[2021-04-29] MEDS ORDERED: HydrOXYzine PAMOATE 50 MG CAPSULE PO PRN (09:15)
[2021-04-29] MEDS ORDERED: GuaiFENesin/D-METHORPHAN [SUGAR-FREE] 200-20MG/10 ML SYRUP UDCUP PO PRN (09:15)
[2021-04-29 09:20] VITALS: BP 148/109
[2021-04-29] MEDS ORDERED: DEXTROSE 50%-WATER 25 GM/50 ML SYRINGE IVP PRN (09:45)
[2021-04-29] MEDS: OMEPRAZOLE 20 MG CAPSULE PO SCH (09:51)
[2021-04-29] MEDS: METOPROLOL TARTRATE 50 MG TABLET PO SCH ×2 (09:51→16:34)
[2021-04-29] MEDS: INSULIN LISPRO 100 UNITS/ML SQ PRN ×3 (11:33→21:14)
[2021-04-29 11:35] LABS: GLUCOMETER DEV NAME(LOC) 3E.C; GLUCOSE,POINT OF CARE 266 MG/DL (70-110)
[2021-04-29] MEDS ORDERED: DIVALPROEX SODIUM 500 MG ER TABLET PO SCH (13:00)
[2021-04-29] MEDS ORDERED: OLANZapine 5 MG RAPDIS TABLET PO SCH (13:00)
[2021-04-29] MEDS ORDERED: QUEtiapine FUMARATE 100 MG TABLET PO PRN (13:15)
[2021-04-29 16:20] LABS: GLUCOMETER DEV NAME(LOC) 3E.C; GLUCOSE,POINT OF CARE 225 MG/DL (70-110)
[2021-04-29] MEDS: THIAMINE 100 MG TABLET PO SCH (16:35)
[2021-04-29 16:38] VITALS: BP 146/96
[2021-04-29] MEDS: MetFORMIN HCL 500 MG TABLET PO SCH (17:30)
[2021-04-29] MEDS: MELATONIN 5 MG TABLET PO SCH (20:53)
[2021-04-29] MEDS ORDERED: QUEtiapine FUMARATE 300 MG TABLET PO SCH (21:00)
[2021-04-30 06:47] LABS: GLUCOMETER DEV NAME(LOC) 3E.C; GLUCOSE,POINT OF CARE 188 MG/DL (70-110)
[2021-04-30 06:48] LABS: HEMOGLOBIN A1C 9.6 % (3.8-5.6)
[2021-04-30] MEDS: MetFORMIN HCL 500 MG TABLET PO SCH ×2 (06:49→17:30)
[2021-04-30] MEDS: INSULIN LISPRO 100 UNITS/ML SQ PRN ×4 (06:50→21:14)
[2021-04-30 07:04] LABS: CHOL/HDL RATIO 4.5 (4.2-7.3); FREE T4 (FREE THYROXINE) 1.03 ng/dL (0.76-1.46); THYROID STIMULATING HORMONE 1.59 uIU/mL (0.36-3.74)
[2021-04-30] MEDS: NALTREXONE HCL 50 MG TABLET PO SCH (08:01)
[2021-04-30] MEDS: MULTIVITAMINS WITH MINERALS, THERAPEUTIC TABLET PO SCH (08:02)
[2021-04-30] MEDS: OMEGA-3/DHA/EPA/FISH OIL 1,000 MG CAPSULE PO SCH (08:02)
[2021-04-30] MEDS: FOLIC ACID 1 MG TABLET PO SCH (08:02)
[2021-04-30] MEDS: THIAMINE 100 MG TABLET PO SCH ×2 (08:02→16:23)
[2021-04-30] MEDS: OMEPRAZOLE 20 MG CAPSULE PO SCH (08:03)
[2021-04-30] MEDS: METOPROLOL TARTRATE 50 MG TABLET PO SCH ×2 (08:03→16:23)
[2021-04-30 08:20] VITALS: BP 154/99
[2021-04-30] MEDS ORDERED: SALICYLIC ACID 40% PATCH TP SCH (09:00)
[2021-04-30 11:52] LABS: GLUCOMETER DEV NAME(LOC) 3E.C; GLUCOSE,POINT OF CARE 251 MG/DL (70-110)
[2021-04-30] MEDS ORDERED: OMEG-135 PO (13:22)
[2021-04-30] MEDS ORDERED: QUET300T19 PO (13:22)
[2021-04-30] MEDS ORDERED: MELA5TAB40 PO (13:22)
[2021-04-30] MEDS ORDERED: NALT50TA PO (13:22)
[2021-04-30 16:14] VITALS: BP 162/100
[2021-04-30] MEDS: LORazepam 2 MG TABLET PO PRN (16:23)
[2021-04-30 16:25] LABS: GLUCOMETER DEV NAME(LOC) 3E.C; GLUCOSE,POINT OF CARE 247 MG/DL (70-110)
[2021-04-30] MEDS ORDERED: QUEtiapine FUMARATE 200 MG TABLET PO SCH (21:00)
[2021-04-30] MEDS: MELATONIN 5 MG TABLET PO SCH (21:05)
[2021-04-30] MEDS: HALOPERIDOL 5 MG TABLET PO PRN (21:05)
[2021-04-30 21:13] LABS: GLUCOMETER DEV NAME(LOC) 3E.C; GLUCOSE,POINT OF CARE 229 MG/DL (70-110)
[2021-04-30] MEDS ORDERED: OMEG100015 PO (21:48)
[2021-05-01] MEDS: LORazepam 2 MG TABLET PO PRN (01:14)
[2021-05-01] MEDS: MetFORMIN HCL 500 MG TABLET PO SCH (07:09)
[2021-05-01] MEDS: INSULIN LISPRO 100 UNITS/ML SQ PRN (07:14)
[2021-05-01 07:28] LABS: GLUCOMETER DEV NAME(LOC) 3E.C; GLUCOSE,POINT OF CARE 220 MG/DL (70-110)
[2021-05-01] MEDS: THIAMINE 100 MG TABLET PO SCH (08:06)
[2021-05-01] MEDS: OMEPRAZOLE 20 MG CAPSULE PO SCH (08:06)
[2021-05-01] MEDS: MULTIVITAMINS WITH MINERALS, THERAPEUTIC TABLET PO SCH (08:06)
[2021-05-01] MEDS: METOPROLOL TARTRATE 50 MG TABLET PO SCH (08:06)
[2021-05-01] MEDS: NALTREXONE HCL 50 MG TABLET PO SCH (08:06)
[2021-05-01] MEDS: FOLIC ACID 1 MG TABLET PO SCH (08:06)
[2021-05-01] MEDS: OMEGA-3/DHA/EPA/FISH OIL 1,000 MG CAPSULE PO SCH (08:06)
[2021-05-01] MEDS ORDERED: SALICYLIC ACID 40% PATCH TP SCH (09:00)
[2021-05-03] MEDS ORDERED: PALIPERIDONE PALMITATE 156 MG/ML SYRINGE IM ONE (09:00)
== END 2021-05-01 07:50 | disposition home or self-care (01) | DRG 750 ==
LOC: EMS 02:25 → 3EC 08:16
PROVIDERS: ADMIT Psychiatry & Neurology Psychiatry; ATTEND Psychiatry & Neurology Psychiatry
DX: F25.0 Schizoaffective disorder, bipolar type (principal); D72.829 Elevated white blood cell count, unspecified; E11.9 Type 2 diabetes mellitus without complications; E66.01 Morbid (severe) obesity due to excess calories; E78.5 Hyperlipidemia, unspecified; F17.210 Nicotine dependence, cigarettes, uncomplicated; F41.9 Anxiety disorder, unspecified; G47.00 Insomnia, unspecified; G47.33 Obstructive sleep apnea (adult) (pediatric); Z20.822 Contact with and (suspected) exposure to COVID-19; I10 Essential (primary) hypertension; R00.0 Tachycardia, unspecified; J44.9 Chronic obstructive pulmonary disease, unspecified; K21.9 Gastro-esophageal reflux disease without esophagitis; K59.00 Constipation, unspecified; Z55.9 Problems related to education and literacy, unspecified; Z59.9 Problem related to housing and economic circumstances, unspecified; Z63.9 Problem related to primary support group, unspecified; Z65.3 Problems related to other legal circumstances; Z91.14 Patient's other noncompliance with medication regimen; Z91.19 Patient's noncompliance with other medical treatment and regimen; Z68.41 Body mass index [BMI] 40.0-44.9, adult; Z79.899 Other long term (current) drug therapy
CPT/HCPCS: 80053; 80061; 81001; 81002; 82962; 83036; 84439; 84443; 85025; 86592; 87081; 99285; G0480; Q9967

== ENCOUNTER 2021-05-20 11:50 | Emergency (ER) | payer MEDICAID ==
[~2021-05-20] VITALS: Ht 180.3 cm; Wt 139.6 kg
[~2021-05-20 11:50] MED LIST changes: -ARIP10TA38 PO; +MELA5TAB40 PO; +NALT50TA PO; +OMEG-135 PO; +QUET300T19 PO; -QUET300T2 PO
[2021-05-20 12:51] LABS: GLUCOMETER DEV NAME(LOC) ERT.5; GLUCOSE,POINT OF CARE 227 MG/DL (70-110)
[2021-05-20 13:43] VITALS: BP 142/85
[2021-05-20 13:53] LABS: BASOPHILS % (AUTO) 0.7 % (0.0-2.0); EOSINOPHILS % (AUTO) 0.4 % (1.0-6.0); HEMATOCRIT 40.5 % (41-53); HEMOGLOBIN 13.8 g/dL (13.5-17.5); LYMPHOCYTES # (AUTO) 2.6 K/uL (1.0-4.8); LYMPHOCYTES % (AUTO) 22.5 % (22.0-44.0); MEAN CORPUSCULAR HEMOGLOBIN 28.8 pg (26.0-34.0); MEAN CORPUSCULAR VOLUME 85 fL (80-100); MONOCYTES # (AUTO) 0.8 K/uL (0.1-1.0); MONOCYTES % (AUTO) 6.8 % (2.0-9.0); NEUTROPHILS # (AUTO) 8.2 K/uL (1.8-7.7); NEUTROPHILS % (AUTO) 69.6 % (40.0-70.0); PLATELET COUNT (AUTO) 238 K/uL (150-450); RED BLOOD CELL COUNT(AUTO) 4.78 MIL/uL (4.50-5.90)
[2021-05-20 14:01] LABS: ANION GAP 5 mmol/L (8-16); CALCIUM, TOTAL 8.9 mg/dL (8.8-10.5); CARBON DIOXIDE 30 mmol/L (22-29); CHLORIDE 101 mmol/L (98-107); CREATININE 1.01 mg/dL (0.60-1.30); GLOMERULAR FILTR. RATE CALC > 60 mL/min (>60); GLUCOSE,RANDOM 223 mg/dL (70-110); SODIUM SERUM 136 mmol/L (136-145); UREA NITROGEN, BLOOD 15 mg/dL (7-18)
[2021-05-20 14:05] LABS: COVID AG,FIA SOURCE NASOPHARYNGEAL
[2021-05-20 14:07] LABS: ALANINE AMINOTRANSFERASE 37 U/L (12-78); ALBUMIN 3.3 g/dL (3.4-5.0); ALKALINE PHOSPHATASE 80 U/L (46-116); ASPARTATE AMINOTRANSFERASE 22 U/L (15-37); BILIRUBIN,TOTAL 0.9 mg/dL (0.1-1.0)
[2021-05-20 14:55] LABS: AMPHET/METH SCREEN,URINE NEGATIVE (NEGATIVE); BARBITURATE SCREEN, URINE NEGATIVE (NEGATIVE); BENZODIAZEPINES SCREEN,URINE NEGATIVE (NEGATIVE); CANNABINOID SCREEN,URINE NEGATIVE (NEGATIVE); COCAINE SCREEN,URINE NEGATIVE (NEGATIVE); METHADONE SCREEN, URINE NEGATIVE (NEGATIVE); OPIATE SCREEN,URINE NEGATIVE (NEGATIVE); PHENCYCLIDINE SCREEN,URINE NEGATIVE (NEGATIVE)
== END 2021-05-20 15:52 | disposition home or self-care (01) ==
LOC: EMS 11:50
DX: F31.9 Bipolar disorder, unspecified (principal); F41.9 Anxiety disorder, unspecified; I10 Essential (primary) hypertension; G47.30 Sleep apnea, unspecified; K21.9 Gastro-esophageal reflux disease without esophagitis; Z20.822 Contact with and (suspected) exposure to COVID-19
CPT/HCPCS: 36415; 80053; 80307; 82962; 85025; 87426; 99284; G0480